=== PATIENT | female | born 1990 | race Two or more races ===

== ENCOUNTER 2018-11-27 21:45 | Emergency (ER) | payer MEDICAID ==
[~2018-11-27] VITALS: Ht 175.3 cm; Wt 113.4 kg
[2018-11-27 21:54] VITALS: BP 138/93
[2018-11-28] MEDS ORDERED: TETANUS-DIPTH-ACEL PERTUSSIS 0.5ML SYRG IM ONE (00:45)
== END 2018-11-28 01:20 | disposition home or self-care (01) ==
LOC: ER 21:50
DX: S91.351A Open bite, right foot, initial encounter (principal); W54.0XXA Bitten by dog, initial encounter; Y93.89 Activity, other specified; Y99.8 Other external cause status; Y92.89 Other specified places as the place of occurrence of the external cause
CPT/HCPCS: 90471; 90715

== ENCOUNTER 2022-03-16 20:32 | Emergency (ER) | payer MEDICAID, OTHER ==
[~2022-03-16] VITALS: Ht 177.8 cm; Wt 136.0 kg
[2022-03-16 23:41] VITALS: BP 135/101
== END 2022-03-17 04:56 | disposition left against medical advice (07) ==
LOC: ER 20:32
DX: M54.9 Dorsalgia, unspecified (principal); Z53.21 Procedure and treatment not carried out due to patient leaving prior to being seen by health care provider; V49.9XXA Car occupant (driver) (passenger) injured in unspecified traffic accident, initial encounter; Y93.89 Activity, other specified; Y92.89 Other specified places as the place of occurrence of the external cause; Y99.8 Other external cause status